=== PATIENT | male | born 1975 | race Caucasian/White ===

== ENCOUNTER 2025-04-02 03:12 | Emergency (ER) | payer BC, SELFPAY ==
[2025-04-02 03:13] VITALS: BMI 22.4
[2025-04-02 03:29] VITALS: BP 136/76; BP 138/91; PULSE 106; RESP 16; TEMP 36.6; O2SAT 99
--- NOTE | 2025-04-02 03:45 | XR_ITS ---
Examination: CT brain head without contrast. 2-D sagittal coronal reconstructions Date and time of exam:April 02, 2025, 0413 hours INDICATIONS: Onset left hand numbness today CTDI: vol (mGy):53.70. DLP: (mGycm):1088. Technique: Multiple CT axial sections of the brain have been obtained, 5 mm slice thickness. Contrast has not been administered. 2-D sagittal, coronal reconstructions have been obtained Low dose protocols were performed. One or more of the following dose reduction techniques were used; automated exposure control, adjustment of the mA and/or KV according to patient size, use of iterative reconstruction technique. Findings: No significant ventricular enlargement. Intra-axial or extra-axial hemorrhage density is not seen. No mass effect or midline shift Basal cisterns are not remarkable. Fourth ventricle is midline. Cranial vault intact. Impression: Negative for acute hemorrhage, mass effect or midline shift Advise clinical correlation and follow-up accordingly
--- NOTE | 2025-04-02 03:45 | PD.EDRME ---
Rapid Medical Screening Exam RME Arrival date/time: 04/02/25 03:12 Patient is a critical 49-year-old male who came into the emergency room due to numbness and weakness of the left hand patient woke up with the symptoms unable to open or closed the left hand persistence of the symptoms this patient decided to sought consult here in the emergency room Chief Complaint: General Adult/Misc Complain Time Seen by Provider: 04/02/25 03:45 Vital signs: Vital Signs Temperature 97.9 F 04/02/25 03:29 Pulse Rate 106 H 04/02/25 03:29 Respiratory Rate 16 04/02/25 03:29 Blood Pressure 138/91 H 04/02/25 03:29 Pulse Oximetry (%) 99 04/02/25 03:29 Oxygen Delivery Method Room Air 04/02/25 03:29
[2025-04-02 04:48] VITALS: BP 138/90; PULSE 98; RESP 15; O2SAT 99
--- NOTE | 2025-04-02 04:58 | PC.NURSE ---
PT ARRIVED TO ED WITH FOR LEFT HAND WEAKNESS AND NUMBESS . PT WAS CAMPING WITH . PT STATES THAT SYMPTOMS STARTS APPROX 04/01/2025 AROUND 2200. PT STATES THAT HE ASSUMED HAND FEEL ASLEEP AND JUST WENT TO BED. PT WOKE UP AROUND 0100 04/02/2025 AND NOTICED THE WEAKNESS AND THE INABILITY TO CLOSE HAND. PT DID NOT HAVE ANY BILATERAL ARM DRIFT. PT DID NOT HAVE ANY BILATERAL LEG DRIFT. NO FACIAL DROPPING WAS NOTED. PT DENIES ANY PMH. HE STATES THAT THIS IS THE FIRST TIME HE'S EXPERIENCED THESE SYMPTOMS
--- NOTE | 2025-04-02 05:06 | PRELIM_ITS ---
CT scan of the head without intravenous contrast (axial sections with sagittal and coronal reformats). April 02, 2025 0413 hours Clinical History: Rule out CVA Comparison: No prior study is available for comparison. Findings: There is no evidence of intracranial hemorrhage, mass effect or midline shift. The ventricles, sulci and basal cisterns are unremarkable. The calvarium is unremarkable.Bilateral maxillary sinus cysts. Impression: No evidence of intracranial hemorrhage, mass effect or midline shift. Report Electronically Signed By: Santiago Pitts 04/02/2025 5:05:57 AM [EST]
[2025-04-02 05:35] LABS: Basophils # (Auto) 0.1 Thou/mm3 (0.0-0.2); Basophils % (Auto) 1 % (0-2.5); Eosinophils # (Auto) 0.1 Thou/mm3 (0.0-0.5); Eosinophils % (Auto) 1 % (0-10); Hematocrit 43.2 % (41.0-53.0); Hemoglobin 14.8 g/dL (13.5-16.0); Immature Granulocytes Auto 0.04 Thou/mm3 (0.00-0.00); Lymphocytes # (Auto) 1.4 Thou/mm3 (1.0-4.8); Lymphocytes % (Auto) 15 % (10-50); Mean Corpuscular HGB Conc 34.3 g/dl (31.0-37.0); Mean Corpuscular Hemoglobin 31.8 pg (25.0-35.0); Mean Corpuscular Volume 93 fL (80-100); Monocytes # (Auto) 0.5 Thou/mm3 (0.0-0.8); Monocytes % (Auto) 5 % (0-12); Neutrophils # (Auto) 7.6 Thou/mm3 (1.8-7.7); Neutrophils % (Auto) 78 % (37-80); Nucleated Red Blood Cell # 0.00 Thou/mm3 (0.00-0.00); Nucleated Red Blood Cell % 0 /100 WBC (0); Platelet Count 252 Thou/mm3 (140-440); RDW Standard Deviation 43.0 fL (35.1-43.9); Red Blood Count 4.66 Miln/mm3 (4.50-5.90); White Blood Count 9.7 Thou/mm3 (3.8-10.6)
[2025-04-02 05:54] LABS: Alanine Aminotransferase 44 U/L (10-49); Albumin, Serum 4.2 gm/dL (3.5-5.0); Albumin/Globulin Ratio 1.8 (1.2-2.2); Alkaline Phosphatase 76 U/L (46-116); Anion Gap 14 (7-16); Aspartate Amino Transferase 49 U/L (0-34); BUN/Creatinine Ratio 10 Ratio (12-20); Bilirubin,Total 0.8 mg/dL (0.3-1.2); Blood Urea Nitrogen 7 mg/dL (9-23); Calcium 9.3 mg/dL (8.3-10.6); Calcium (Corrected) 9.3 mg/dL (8.5-10.1); Carbon Dioxide 23.6 mMol/L (20.0-31.0); Chloride 101 mMol/L (98-107); Creatinine (Component) 0.7 mg/dL (0.6-1.3); Estimated Creatinine Clearance 140.2 mL/min (>60); Globulin 2.4 gm/dL (2.3-3.5); Glucose 96 mg/dL (74-106); Osmolality,Calculated 275 (275-295); Potassium 3.8 mMol/L (3.4-5.1); Sodium 139 mMol/L (136-145); Total Protein 6.6 gm/dL (5.7-8.2); eGFR > 60 See Note
[2025-04-02 05:59] VITALS: BP 135/85; PULSE 97; RESP 16; TEMP 36.8; O2SAT 99
--- NOTE | 2025-04-02 06:56 | PD.EDEXREM ---
ED Extremity Problem RME/HPI General Chief complaint: General Adult/Misc Complain Stated complaint: LEFT HAND NUMBNESS AFTER SLEEPING ON HIS HAND Time Seen by Provider: 04/02/25 03:45 Arrival date/time: 04/02/25 03:12 RME / HPI RME / HPI Narrative: 04/02/25 03:12 Patient is a critical 49-year-old male who came into the emergency room due to numbness and weakness of the left hand patient woke up with the symptoms unable to open or closed the left hand persistence of the symptoms this patient decided to sought consult here in the emergency room DR. JESSU GRAJEDA ED EVALUATION 49 year old male presents to the ED for evaluation of left hand numbness and weakness today. Patient reports he was camping and fell asleep on his camping chair. When he woke up today noted the left hand weakness and numbness, prompting ED visit. Patient admits to drinking etoh last night and per is a daily drinker. No other associated symptoms reported. Denies any headache, unilateral weakness, change in speech or gait. Denies fevers, chills, or other associated symptoms. Related Data Allergies Allergy/AdvReac Type Severity Reaction Status Date / Time No Known Allergies Allergy Verified 04/02/25 03:14 Review of Systems Review of Systems Systems Reviewed: All systems reviewed, normal except as documented Past Medical History Past Medical History CARDIAC: Negative Congestive Heart Failure RESPIRATORY: Negative Chronic Obstructive Pulmonary Disease (COPD) GENITOURINARY: Negative Renal Disease ENDOCRINE: Negative Diabetes Mellitus Type 1 or Diabetes Mellitus Type 2 Social History SMOKING STATUS: Current some day smoker ED Exam Narrative Physical exam: GENERAL APPEARANCE: alert and oriented x 4, well-developed, well-nourished HEENT: Normocephalic, atraumatic; pupils equal, round, reactive to light; EOMI; mucous membranes pink, moist; oropharynx clear NECK: Supple LUNGS: CTABL; no wheezes, no rales, no rhonchi HEART: Regular rate, regular rhythm; normal S1, S2; no murmurs ABDOMEN: non distended; normal BS; soft, no tenderness, no guarding, no rebound; no masses, no organomegaly, no hernia BACK: no CVA tenderness EXTREMITIES: atraumatic; no edema NEUROLOGIC: awake; alert and oriented x4; cranial nerves II-XII grossly intact; left sided wrist drop with diminished home health speech therapist, mild sensory deficit of the left hand PSYCHIATRIC: appropriate mood and affect SKIN: warm, dry, normal color; no rashes Course Quality Measures none Orders Category Date Time Status CT head/brain wo con Stat Exams 04/02/25 03:45 Completed CBC Stat Lab 04/02/25 05:30 Completed CMP [Comprehensive Metabolic Panel] Stat Lab 04/02/25 05:30 Completed Vital Signs Vital signs: Vital Signs Temperature 97.9 F 04/02/25 03:29 Pulse Rate 106 H 04/02/25 03:29 Respiratory Rate 16 04/02/25 03:29 Blood Pressure 138/91 H 04/02/25 03:29 Pulse Oximetry (%) 99 04/02/25 03:29 Oxygen Delivery Method Room Air 04/02/25 03:29 Pulse ox is 99% on room air which is adequate. Extremity Problem MDM Narrative MDM Narrative:: I, Ofelia Lopez, am scribing for and in the presence of Dr. Bynum. Patient on my examination was shaky and reports he is a daily drinker. Patient states he is always shaking and denies feeling he is withdrawing from alcohol. I advised patient receive IV fluids and Ativan in the ED. However, he refused and states ' If i'm not having a stroke, I just want to go home . 11:48 49 year old male presents to the ED for evaluation of left hand numbness and weakness today. Patient reports he was camping and fell asleep on his camping chair. When he woke up today noted the left hand weakness and numbness, prompting ED visit. Patient admits to drinking etoh last night and per is a daily drinker. No other associated symptoms reported. Denies any headache, unilateral weakness, change in speech or gait. Denies fevers, chills, or other associated symptoms. Patient has Thursday night palsy (radial nerve palsy due to compression of the limb and protracted ischemia). He has absolutely no other signs of stroke whatsoever. We have placed him in a finger extended splint and gave him strict return instructions which he voiced understanding to them agreement Patient data External records reviewed:: None (No previous records for review) Clinical information provided by:: patient and spouse Social determinants that could affect healthcare access:: alcohol use Patient has the following chronic illnesses:: None reported How is presenting disease/condition affected by chronic disease/condition?: no chronic disease Evaluation data The following diagnostics were reviewed and interpreted by me:: lab results and radiology exam(s) Lab and/or radiology exams considered but not ordered:: None Interpretation Summary: Ordering Physician: Lorraine Carrizales Date of Service: 04/02/25 Procedure(s): CT head/brain wo con Accession Number(s): [id number] cc: Bijan Cornejo MD; NO PRIMARY/FAMILY,PHYSICIAN; Lorraine Carrizales~ Examination: CT brain head without contrast. 2-D sagittal coronal reconstructions Date and time of exam:April 02, 2025, 0413 hours INDICATIONS: Onset left hand numbness today CTDI: vol (mGy):53.70. DLP: (mGycm):1088. Technique: Multiple CT axial sections of the brain have been obtained, 5 mm slice thickness. Contrast has not been administered. 2-D sagittal, coronal reconstructions have been obtained Low dose protocols were performed. One or more of the following dose reduction techniques were used; automated exposure control, adjustment of the mA and/or KV according to patient size, use of iterative reconstruction technique. Findings: No significant ventricular enlargement. Intra-axial or extra-axial hemorrhage density is not seen. No mass effect or midline shift Basal cisterns are not remarkable. Fourth ventricle is midline. Cranial vault intact. Impression: Negative for acute hemorrhage, mass effect or midline shift Advise clinical correlation and follow-up accordingly Dictated By: Bijan Cornejo MD Signed By: <Electronically signed by Bijan Cornejo MD in [place]> 04/02/25 0648 Medications / Prescriptions Medications or Prescriptions considered but not ordered:: None Medication administrations:: None Consultations Consultation(s) initiated? (list below): No Diagnosis Extremity Problem Differential Diagnosis: other Most likely diagnosis given after review of the tests above:: Thursday night nerve palsy Acute radial nerve palsy Admission Indicated Admission indicated?: not indicated Admission Request Was there a request for admission?: No Disposition Plan Disposition Plan: Discharge Discharge Attestation Discharge Attestation: The patient and all family members were given an opportunity to ask questions and understood the discharge instructions. Discharge instructions specifically effects, indications for sooner follow up or return to the emergency department, and the expected course of current diagnosis. Patient condition: Stable Discharge Plan Plan Patient Disposition: HOME (Self Care) Discharge Disposition comment: Stable for discharge home Patient condition on transfer: Stable Prescriptions/Referrals Referrals: [facility] [Provider Group] - In 1 week Aldo Barlow MD [Physician] - In 1 week Problem List Clinical Impression: Thursday night nerve palsy, Acute radial nerve palsy Patient/Caregiver Discharge Instructions Discharge Activity: activity as tolerated Education Materials: ED Radial Nerve Palsy, ED Wrist Drop Additional Instructions: Today you were seen in the emergency department for radial nerve palsy. This is a condition that results from falling asleep and cutting off blood flow to your hand. It typically results in a wrist drop and tingling or numbness. This could take 7-10 weeks to heal completely. Most patients heal completely within 6 to 7 months. Please return to the emergency department if you have any worsening or any further medical problems and we will help you I have given you contact information for Dr Barlow. He is a neurologist which is a development disability specialist. You should call his office and make a follow-up appointment for the next few days Please follow-up with your primary care doctor or in the [facility] as well within the next few days Print Language: Romansh Stand Alone Forms: Jaci Award Info., Patient Portal Info Letter
[2025-04-02 07:30] VITALS: BP 143/87; PULSE 93; RESP 19; TEMP 37.2; O2SAT 98
== END 2025-04-02 07:34 | disposition home or self-care (01) ==
PROVIDERS: Nurse Practitioner Family; Emergency Provider Emergency Medicine
DX: G56.32 Lesion of radial nerve, left upper limb (principal); R53.1 Weakness
CPT/HCPCS: 36415; 70450; 80053; 85025; 99283

== ENCOUNTER → 2025-05-24 | Outpatient (CLI) | payer BC, SELFPAY ==
--- NOTE | 2025-05-24 16:09 | XR_ITS ---
EXAMINATION: PA lateral chest 2 views TECHNIQUE: Upright PA lateral chest 2 views Date and time: May 24, 2025, 1620 hours INDICATIONS: Left-sided chest pain after falling 1 week ago FINDINGS: Normal heart size No pneumothorax. Acute fracture left eighth rib posteriorly with mild offset IMPRESSION: No pneumothorax pulmonary contusion or hemothorax Acute fracture left eighth rib posteriorly with mild offset
== END | disposition home or self-care (01) ==
LOC: CDIM 15:57
PROVIDERS: PCP Student in an Organized Health Care Education/Training Program; Referring Provider Student in an Organized Health Care Education/Training Program; Visit Provider Student in an Organized Health Care Education/Training Program
DX: S22.32XA Fracture of one rib, left side, initial encounter for closed fracture (principal); W19.XXXA Unspecified fall, initial encounter
CPT/HCPCS: 71046